=== PATIENT | female | born 1960 | race African-American/Black ===

== ENCOUNTER 2019-03-20 08:27 | Emergency (ER) | payer OTHER ==
[~2019-03-20] VITALS: Ht 167.6 cm; Wt 83.9 kg
--- NOTE | 2019-03-20 08:36 | NUR ---
ED Nurse Note: pt was brought in by ambulance from home c/o ground level slip and fall, denies head trauma, denies loc. pt is complaining of 8/10 pain. able to stand on her good feet.. pt is aox4. not in acute distress. will continue to monitor.
--- NOTE | 2019-03-20 08:57 | NUR ---
ED Nurse Note: xray on bedside
[2019-03-20] MEDS ORDERED: Tylenol #3 tab (300mg/30mg) PO ONE (09:00)
--- NOTE | 2019-03-20 09:03 | NUR ---
ED Nurse Note: pt medicated and tolerated well.
[2019-03-20] MEDS ORDERED: ACETAMINOPHEN-1 EAC1 ORAL (09:53)
--- NOTE | 2019-03-20 10:08 | NUR ---
ED Nurse Note: knee immobilizer and crutches provided with the pt and able to tolerate. pt able to return demo hgow to use the crutches. will continue to monitor.
[2019-03-20 10:13] VITALS: BP 135/70
--- NOTE | 2019-03-20 10:13 | NUR ---
ER DISCHARGE NOTE: Patient is cleared to be discharged per ERMD, pt is aox4, on room air, with stable vital signs. pt was given dc and prescription instructions, pt was able to verbalize understanding, pt id band removed without complications. pt is able to ambulate with crutches. pt took all belongings.
--- NOTE | 2019-03-20 10:36 | Emergency Room Report ---
History of Present Illness General Chief Complaint: Lower Extremity Injury Source: Patient Present Illness HPI 58-year-old female presents ED for evaluation. Patient brought in by EMS status post trip and fall at home. She slipped in the shower and fell forward landing on her right knee. Presents with right knee pain. Throbbing, 9 out of 10, nonradiating. Unable to bear weight. Denies any other injuries. Denies hitting her head or LOC. No other aggravating or relieving factors. Denies any other associated symptoms Allergies: Coded Allergies: No Known Allergies (Unverified , 03/20/19) Patient History Past Medical History: HTN Past Surgical History: none Pertinent Family History: none Social History: Denies: smoking, alcohol use, drug use Now: No Immunizations: UTD Reviewed Nursing Documentation: PMH: Agreed; PSxH: Agreed Nursing Documentation-PMH Past Medical History: No History, Except For Hx Hypertension: Yes Review of Systems All Other Systems: negative except mentioned in HPI Physical Exam Vital Signs Date Time Temp Pulse Resp B/P (MAP) Pulse Ox O2 Delivery O2 Flow Rate FiO2 03/20/19 08:25 99.0 76 19 172/62 (98) 99 Room Air Sp02 EP Interpretation: reviewed, normal General Appearance: alert, GCS 15, non-toxic, mild distress Head: normocephalic ENT: normal ENT inspection Neck: normal inspection Respiratory: normal inspection Cardiovascular #1: normal inspection Gastrointestinal: normal inspection Rectal: deferred Genitourinary: no CVA tenderness Musculoskeletal: tender - R knee Neurologic: alert, oriented x3, responsive, motor strength/tone normal, sensory intact, speech normal Psychiatric: normal inspection Skin: normal inspection Lymphatic: normal inspection Procedures Splinting Splinting : Consent: Verbal Pre-Made Type: knee immobilizer Pre-Proc Neuro Vasc Exam: normal Post-Proc Neuro Vasc Exam: normal Patient Tolerated: Well Complications: None Medical Decision Making Diagnostic Impression: Primary Impression: Knee contusion Qualified Codes: S80.01XA - Contusion of right knee, initial encounter ER Course Hospital Course 58-year-old F presents to ED complaining of R knee pain s/p fall Differential diagnoses include: Fracture, dislocation, sprain, contusion Clinical course Patient placed on stretcher. After initial history and physical, I ordered pain medications and Xrays of R knee Xrays prelim read shows no acute fracture/dislocation. placed in knee immobilizer, given crutches discussed findings with patient. Likely contusion. Recommend ice, analgesia , elevation, modified activity. Safe for discharge for close outpatient follow- up. I will provide Ortho referrals Diagnosis - knee contusion Stable and discharged to home with prescription for tylenol #3. apply ice, keep elevated. weight bear as tolerated. Followup with PMD/ortho. Return to ED if symptoms recur or worsen Other X-Ray Diagnostic Results Other X-Ray Diagnostic Results : X-Ray ordered: R knee # of Views/Limited Vs Complete: 3 View Indication: Pain EP Interpretation: Yes Interpretation: no dislocation, no soft tissue swelling, no fractures Impression: No acute disease Electronically Signed by: Electronically signed by Luis Enrique Mora MD Last Vital Signs Date Time Temp Pulse Resp B/P (MAP) Pulse Ox O2 Delivery O2 Flow Rate FiO2 03/20/19 10:13 98.0 03/20/19 10:13 88 16 135/70 98 Room Air Status: improved Disposition: HOME, SELF-CARE Condition: Stable Scripts Acetaminophen With Codeine (T#3) (TYLENOL #3 TAB*) Y Tab 1 TAB ORAL Q8H PRN for For Pain, #12 TAB Prov: Luis Enrique Mora MD 03/20/19 Referrals: [facility] ([facility] Open 24 hour /7 days a week by Appointment Only [address] [facility] [address] Patient Instructions: Contusion-SportsMed Luis Enrique Mora MD Mar 20, 2019 10:36
--- NOTE | 2019-03-20 11:38 | Diagnostic Imaging Report ---
EXAM: XR Right Knee, 3 views CLINICAL HISTORY: PAIN TECHNIQUE: Three views of the right knee. COMPARISON: None FINDINGS: Bones/joints: No displaced fracture or dislocation identified. Joint space is maintained. No bony lesion. No significant joint effusion. Soft tissues: Normal. IMPRESSION: No displaced fracture or dislocation identified.
== END 2019-03-20 10:13 | disposition home or self-care (01) ==
LOC: EDBD 08:27 → EMR 09:04
DX: S80.01XA Contusion of right knee, initial encounter (principal); W01.0XXA Fall on same level from slipping, tripping and stumbling without subsequent striking against object, initial encounter; Y92.009 Unspecified place in unspecified non-institutional (private) residence as the place of occurrence of the external cause; I10 Essential (primary) hypertension
CPT/HCPCS: 29505; 99283